=== PATIENT | female | born 1975 | race Caucasian/White ===

== ENCOUNTER 2017-09-13 15:18 | Emergency (ER) | payer OTHER ==
[2017-09-13 15:35] VITALS: BMI 21.2
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
[2017-09-13 18:37] VITALS: BP 115/76; PULSE 77; RESP 16; TEMP 98.4
[2017-09-13 19:14] VITALS: O2SAT 99
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
== END 2017-09-13 19:28 | disposition home or self-care (01) ==
LOC: C.ER 15:18
DX: S16.1XXA Strain of muscle, fascia and tendon at neck level, initial encounter (principal); V49.40XA Driver injured in collision with unspecified motor vehicles in traffic accident, initial encounter
CPT/HCPCS: 70450; 72100; 72125; 96372; 99284; J1885